=== PATIENT | female | born 1935 | race Hispanic/Latino ===

== ENCOUNTER 2020-11-28 13:22 | Inpatient (IN) | payer MEDICARE ==
[~2020-11-28] VITALS: Ht 157.5 cm; Wt 73.0 kg
[2020-11-28] MEDS ORDERED: IPRATROPIUM/ALBUTEROL SULFATE 3 ML SOLUTION IH ONE (13:28)
[2020-11-28 13:33] LABS: BASOPHILS % (AUTO) 0.4 % (0.0-5.0); HEMATOCRIT 30.5 % (36-48); LYMPHOCYTES % (AUTO) 16.8 % (21.0-51.0); MEAN CORPUSCULAR HGB CONC 30.2 g/dL (32.0-36.0); MEAN CORPUSCULAR VOLUME 99.3 fL (79-99); MONOCYTES % (AUTO) 11.8 % (3.0-13.0); NEUTROPHILS % (AUTO) 61.3 % (40.0-77.0); PLATELET COUNT (AUTO) 173 K/uL (130-400); RED BLOOD CELL COUNT(AUTO) 3.07 MIL/uL (4.00-5.50); RED CELL DISTRIBUTION WIDTH 24.7 % (11.0-15.5); WHITE BLOOD COUNT (AUTO) 2.8 K/uL (4.8-10.8)
[2020-11-28 13:46] LABS: INR 1.16 (0.85-1.15); PROTHROMBIN TIME 12.5 SEC (9.6-11.6)
[2020-11-28 13:47] LABS: PARTIAL THROMBOPLASTIN TIME 24.2 SEC (26.3-35.5)
[2020-11-28 13:49] LABS: B-TYPE NATRIURETIC PEPTIDE 980 pg/mL (0-100)
[2020-11-28] MEDS ORDERED: DILTIAZEM 50MG VIAL IV ONE (13:49)
[2020-11-28 13:58] LABS: CREATININE 2.1 mg/dL (0.5-1.5); POTASSIUM 5.7 mmol/L (3.5-5.1)
[2020-11-28 14:02] LABS: ALBUMIN 2.9 g/dL (3.5-5.0); BILIRUBIN,TOTAL 0.8 mg/dL (0.2-1.0); TOTAL PROTEIN, SERUM 5.7 g/dL (6.0-8.3)
[2020-11-28] MEDS ORDERED: 0.9% NACL 250ML 250 ML IV ONE ×2 (14:03→20:18)
[2020-11-28 14:30] LABS: BAND NEUTROPHILS % (MANUAL) 23 % (0-2); LYMPHOCYTES % (MANUAL) 13 % (22-44); MONOCYTES % (MANUAL) 17 % (2-9); SEGMENTED NEUTROPHILS % 47 % (40-70)
[2020-11-28 14:31] LABS: PLATELET MORPHOLOGY COMMENT ADEQUATE
[2020-11-28] MEDS ORDERED: 0.9%NACL 100ML 100 ML IV ONE ×2 (14:35→23:07)
[2020-11-28] MEDS ORDERED: ASPIRIN 300 MG SUPPOSITORY PR ONE (14:55)
[2020-11-28] MEDS ORDERED: CALCIUM GLUC 1GM/10ML VIAL IV ONE (14:56)
[2020-11-28] MEDS ORDERED: 0.9%NACL 50ML 50 ML IV ONE (15:01)
[2020-11-28 15:10] LABS: ABG BASE EXCESS -9.6 mmol/L (-2.0-3.0); ABG HCO3 17.2 mmol/L (21.0-28.0); ABG OXYGEN SATURATION 99.5 % (95.0-99.0); ABG PCO2 40 mmHg (32-45)
[2020-11-28] MEDS ORDERED: ZOSYN 3.375GM+NS 50ML 50 ML IV ONE (15:18)
[2020-11-28] MEDS ORDERED: ZOSYN 3.375GM+NS 50ML 50 ML IV SCH (15:45)
[2020-11-28] MEDS ORDERED: LINEZOLID 600 MG/ISO-OSM 300 ML IV SCH (15:45)
[2020-11-28] MEDS ORDERED: DOXYCYCLINE 100MG+NS 250ML 250 ML IV SCH (16:00)
[2020-11-28] MEDS ORDERED: SODIUM BICARB 50MEQ 50ML VIAL 0 ML ONE (16:10)
[2020-11-28] MEDS ORDERED: PHARMACY COMMUNICATION MISC SCH (16:15)
[2020-11-28 16:19] LABS: PHOSPHORUS 3.5 mg/dL (2.5-4.9); POTASSIUM 5.6 mmol/L (3.5-5.1); URIC ACID 12.8 mg/dL (2.6-7.2)
[2020-11-28] MEDS ORDERED: AMIODARONE 900MG VIAL 150 MG in DEXTROSE 5%-WATER 100 ML IV SCH (16:30)
[2020-11-28] MEDS ORDERED: METOPROLOL TARTRATE 1 MG/ML 5ML VIAL IV SCH (16:30)
[2020-11-28] MEDS ORDERED: AMIODARONE 900MG VIAL 900 MG in DEXTROSE 5%-WATER 500 ML IV SCH (16:30)
[2020-11-28] MEDS ORDERED: METOPROLOL TARTRATE 1 MG/ML 5ML VIAL IV ONE (16:39)
[2020-11-28] MEDS ORDERED: SODIUM BICARB 50MEQ 50ML VIAL 100 ML ONE (16:39)
[2020-11-28] MEDS ORDERED: DOXYCYCLINE 100MG+NS 250ML 250 ML IV ONE (16:39)
[2020-11-28] MEDS ORDERED: LACTATED RINGERS 1000ML 1,000 ML IV ONE (16:45)
[2020-11-28 17:30] LABS: MAGNESIUM 1.9 mg/dL (1.80-2.40); POTASSIUM 5.3 mmol/L (3.5-5.1)
[2020-11-28] MEDS ORDERED: VANCOMYCIN 1G/250ML KIT 250 ML IV SCH (20:00)
[2020-11-28] MEDS ORDERED: PHENYLEPHRINE HCL 10 MG/ML 1ML VIAL IV ONE (20:17)
[2020-11-28] MEDS ORDERED: PHENYLEPHRINE HCL 10/NS 250ML IV PRN ×2 (20:30)
[2020-11-28] MEDS ORDERED: ENOXAPARIN SODIUM 30 MG/0.3 ML SQ SCH (21:00)
[2020-11-28] MEDS ORDERED: SOLU-MEDROL 125MG VIAL IVP SCH (21:00)
[2020-11-28] MEDS ORDERED: SOLU-MEDROL 125MG VIAL ONE (21:34)
[2020-11-28] MEDS ORDERED: ENOXAPARIN SODIUM 30 MG/0.3 ML SQ ONE (21:34)
[2020-11-28] MEDS ORDERED: IPRATROPIUM 0.5 MG/2.5 ML INH IH SCH (22:00)
[2020-11-28] MEDS ORDERED: ALBUTEROL 0.083% 2.5 MG/3 ML INH IH SCH (22:00)
[2020-11-28] MEDS ORDERED: IPRATROPIUM 0.5 MG/2.5 ML INH IH ONE (22:40)
[2020-11-28] MEDS ORDERED: NOREPINEPHRIN 4MG/NS 250ML 250 ML IV ONE (22:47)
[2020-11-28] MEDS ORDERED: EPINEPHRINE PF 1MG AMP ONE ×3 (23:06→23:30)
[2020-11-28] MEDS ORDERED: VASOPRESSIN 20 UNITS/ML 1ML VIAL ONE (23:06)
[2020-11-28] MEDS ORDERED: EPINEPHRINE 1 MG/ML 30ML VIAL IJ ONE (23:31)
[2020-11-29] MEDS ORDERED: Vitamin B Complex/Vit C/Folic Acid PO SCH (09:00)
[2020-11-29] MEDS ORDERED: PANTOPRAZOLE 40 MG/VIAL IVP SCH (09:00)
== END 2020-11-28 23:37 | disposition expired | DRG 871 ==
LOC: EDH 13:22 → EDBD 13:22 → EDHIP 15:39
PROVIDERS: ADMIT Internal Medicine; ATTEND Internal Medicine
PROC: 5A09357 Assistance with Respiratory Ventilation, Less than 24 Consecutive Hours, Continuous Positive Airway Pressure (ICD-10-PCS; principal; 2020-11-28)
PROC: 5A12012 Performance of Cardiac Output, Single, Manual (ICD-10-PCS; 2020-11-28)
DX: A41.9 Sepsis, unspecified organism (principal); G93.41 Metabolic encephalopathy; J18.9 Pneumonia, unspecified organism; J96.01 Acute respiratory failure with hypoxia; R65.21 Severe sepsis with septic shock; C85.90 Non-Hodgkin lymphoma, unspecified, unspecified site; E87.4 Mixed disorder of acid-base balance; N17.9 Acute kidney failure, unspecified; E87.2 Acidosis; N18.4 Chronic kidney disease, stage 4 (severe); D84.821 Immunodeficiency due to drugs; D53.9 Nutritional anemia, unspecified; E83.52 Hypercalcemia; E86.0 Dehydration; E87.5 Hyperkalemia; E88.09 Other disorders of plasma-protein metabolism, not elsewhere classified; I46.9 Cardiac arrest, cause unspecified; I48.91 Unspecified atrial fibrillation; Z20.822 Contact with and (suspected) exposure to COVID-19; I12.9 Hypertensive chronic kidney disease with stage 1 through stage 4 chronic kidney disease, or unspecified chronic kidney disease; M19.90 Unspecified osteoarthritis, unspecified site; Z79.899 Other long term (current) drug therapy; T45.1X5A Adverse effect of antineoplastic and immunosuppressive drugs, initial encounter; Y92.89 Other specified places as the place of occurrence of the external cause
CPT/HCPCS: 36415; 36600; 71045; 80048; 80053; 82550; 82803; 83605; 83735; 83880; 84100; 84132; 84484; 84550; 85025; 85610; 85730; 87040; 87426; 87804; 87880; 92950; 93005; 94640; 94660; G0378; J0171; J0282; J0610; J1650; J2020; J2370; J2543; J2930; J3490; J7050; J7060; U0003